=== PATIENT | female | born 1975 | race Caucasian/White ===

== ENCOUNTER → 2018-04-03 | Outpatient (CLI) | payer OTHER ==
[~2018-04-03] MED LIST: ATOR10TA24 PO; BUSP15TA69 PO; CLIN300C99 PO; DES100PT PO; DOCU-416 PO; HYDR-653 PO; IBUP600T22 PO; LEVO1TAB16 PO; OXYB10TA21 PO; OXYC-865 PO; OXYC5TAB38 PO; PANT40SU3 PO; PHEN200T32 PO; PRESTIQ PO; TAMS0.4C25 PO; TAMS0.4C70 PO; ZOLP-1 PO; ZOLP-350 PO
--- NOTE | 2018-04-03 11:09 | RADIOLOGY IMAGING REPORT ---
FACILITY: [facility] [place] PATIENT NAME: Lynn Lucero : 1975 MR: [id number] V: [id number] EXAM DATE: ORDERING PHYSICIAN: JORDAN PUENTES TECHNOLOGIST: Location: [facility] [place] Patient: Lynn Lucero : 1975 Visit/Account:[id number] Date of Sevice: 04/03/2018 CT ABDOMEN PELVIS W/O CON Indication: History of kidney stones. COMPARISON STUDIES: CT abdomen and pelvis 02/01/2017.. TECHNIQUE: Noncontrast CT lung bases to the pubic symphysis obtained. One of the following dose optimization techniques was utilized in the performance of this exam: autom ated exposure control; adjustment of the mA and/or kV according to the patient's size; or use of an i terative reconstruction technique. Specific details can be referenced in the facility's radiology CT exam operational policy. FINDINGS: Liver / gallbladder: Liver demonstrates normal attenuation. Gallstone is seen. Pancreas: Pancreas is unremarkable. Spleen: Normal. Adrenal glands: Normal. Kidneys: There are several nonobstructing calculi in the left kidney, the largest measures 4 mm. Rig ht kidney is normal. Pelvis: The urinary bladder is normal. Bowel: There is no focal abnormality in the small bowel or colon. Vessels: Negative Musculoskeletal / Body wall: There are no lytic or blastic bone lesions. Soft tissues are normal. Lymph node assessment: Negative Lower chest: Negative IMPRESSION: 1. Left nephrolithiasis, largest calculus measuring 4 mm. This is unchanged from comparison study . 2. Normal appearance of the right kidney. 3. Cholelithiasis. Report Dictated By: Guy Metzger at 04/03/2018 11:03 AM Report E-Signed By: Guy Metzger at 04/03/2018 11:06 AM WSN:[id number]
== END ==
LOC: CT 06:49
PROVIDERS: ATTEND Urology
DX: N20.0 Calculus of kidney (principal); N13.30 Unspecified hydronephrosis; K80.20 Calculus of gallbladder without cholecystitis without obstruction
CPT/HCPCS: 74176

== ENCOUNTER → 2018-09-12 | Outpatient (CLI) | payer OTHER | LOC: LAB 08:14 | PROVIDERS: ATTEND Nurse Practitioner Family | DX: R10.9 Unspecified abdominal pain (principal); R14.0 Abdominal distension (gaseous); R14.1 Gas pain; K59.00 Constipation, unspecified; R19.7 Diarrhea, unspecified | CPT/HCPCS: 82274; 83630; 87045; 87177; 87338 ==